=== PATIENT | male | born 1995 | race Caucasian/White ===

== ENCOUNTER 2022-08-04 17:06 | Emergency (ER) | payer MEDICAID ==
[~2022-08-04] VITALS: Ht 180.3 cm; Wt 63.5 kg
== END 2022-08-04 18:11 | disposition home or self-care (01) ==
LOC: ER 17:06
DX: S60.512A Abrasion of left hand, initial encounter (principal); W54.1XXA Struck by dog, initial encounter; Z23 Encounter for immunization
CPT/HCPCS: 73130; 90471; 90714; 99283-25

== ENCOUNTER 2022-08-06 15:49 | Emergency (ER) | payer MEDICAID ==
[~2022-08-06] VITALS: Ht 180.3 cm; Wt 70.3 kg
[2022-08-06] MEDS ORDERED: CEPH500 PO (16:10)
== END 2022-08-06 16:11 | disposition home or self-care (01) ==
LOC: ER 15:49
DX: L03.012 Cellulitis of left finger (principal)
CPT/HCPCS: 99282

== ENCOUNTER 2022-08-26 13:40 | Emergency (ER) | payer OTHER ==
[~2022-08-26] VITALS: Ht 180.3 cm; Wt 63.2 kg
[~2022-08-26 13:40] MED LIST: CEPH500 PO
[2022-08-26 16:30] VITALS: BP 140/78
== END 2022-08-26 16:37 | disposition home or self-care (01) ==
LOC: ER 13:40
DX: R06.02 Shortness of breath (principal); F17.200 Nicotine dependence, unspecified, uncomplicated; F17.290 Nicotine dependence, other tobacco product, uncomplicated
CPT/HCPCS: 71046; 99283-25